=== PATIENT | female | born 1970 | race Caucasian/White ===

== ENCOUNTER 2018-03-28 09:07 | Day surgery (SDC) | payer BC ==
[2018-03-28] MEDS ORDERED: cefOXitin 2 GM VIAL ONE (10:52)
[2018-03-28] MEDS ORDERED: Sodium Chloride 0.9% 100 ML ONE (11:02)
[2018-03-28] MEDS ORDERED: Bupivacaine/Epinephrine 0.25% 30 ML VIAL ONE (13:21)
[2018-03-28] MEDS ORDERED: Fentanyl 100 MCG/2 ML VIAL ONE ×2 (13:29→15:00)
[2018-03-28] MEDS ORDERED: Famotidine/PF 20 mg/2ml Vial ONE (13:29)
[2018-03-28] MEDS ORDERED: Lidocaine 1% PF 5 ML VIAL ONE (14:56)
[2018-03-28] MEDS ORDERED: Glycopyrrolate 0.2 MG/ML 5 ML SYRINGE ONE (14:56)
[2018-03-28] MEDS ORDERED: Ketorolac Tromethamine 30 MG/ML VIAL ONE (14:56)
[2018-03-28] MEDS ORDERED: PROPOFOL 200 MG/20 ML VIAL ONE (14:56)
[2018-03-28] MEDS ORDERED: Dexamethasone 20 MG/5 ML VIAL ONE (14:56)
[2018-03-28] MEDS ORDERED: Ondansetron HCl/PF 4 MG/2 ML Vial ONE (14:56)
[2018-03-28] MEDS ORDERED: Ondansetron HCl/PF 4 MG/2 ML Vial IVP PRN (15:20)
[2018-03-28] MEDS ORDERED: Non-Formulary Medication 1 EACH PO PRN (15:20)
[2018-03-28] MEDS ORDERED: Promethazine HCl 25 MG/ML VIAL IM/IV PRN (15:20)
[2018-03-28] MEDS ORDERED: HYDROcodone/Acetaminophen 5/325 mg Tablet ONE (16:40)
--- NOTE | 2018-03-29 01:13 | OP ---
DATE OF PROCEDURE: 03/28/2018 PREOPERATIVE DIAGNOSIS: Acute cholecystitis. POSTOPERATIVE DIAGNOSIS: Acute cholecystitis. PROCEDURE: Laparoscopic cholecystectomy. SURGEON: Vinayak Jiang M.D. ANESTHESIA: General. ESTIMATED BLOOD LOSS: None. COMPLICATIONS: None. SPECIMEN: Gallbladder. FINDINGS: Cholecystitis. PROCEDURE IN DETAIL: The patient was taken to the Operating Room and laid supine on the Operating Ro om table. After general anesthetic was obtained, the abdomen was prepped and draped in a sterile fas hion. A curved incision was made below the umbilicus. Cautery was used to dissect down to the umbili alex fascia. Umbilical fascia was incised and held up using a Ojhn. The abdominal cavity was enter ed using a Swati clamp. Holding stitch of Vicryl was placed on each side of the fascia. Olivera troc ar was placed. High-flow pneumoperitoneum was obtained. An upper midline 5-mm port and two right up per quadrant 5-mm ports were placed under direct camera visualization. The gallbladder was retracted from the gallbladder fossa. The peritoneum of the gallbladder was opened anteriorly and posteriorly . The critical view triangle was seen showing only the cystic duct and cystic artery branching from medial to lateral. There were no other branching structures. Two clips were placed proximally on th e cystic duct and one laterally. It was cut using laparoscopic scissors. The cystic artery was take n in the same way. Electrocautery was then used to dissect the gallbladder out of the gallbladder fo ssa. The gallbladder was placed in an Endo catch bag and brought out through the Olivera. There was no bleeding or bile in the liver bed. The cystic duct stump and cystic artery stump were intact with out evidence of extravasation or bleeding. All port sites were infiltrated using local anesthesia. All ports were removed under camera visualization. Pneumoperitoneum was let down. The Vicryl was use d to close the fascial defect below the umbilicus. All incisions were irrigated and closed using 4-0 Monocryl and DermaBond. The patient was enroute to Recovery in stable condition. All instrument co unts, needle counts and lap counts were correct.
== END 2018-03-28 17:27 | disposition home or self-care (01) ==
LOC: SDC 09:07
PROVIDERS: ATTEND Surgery
PROC: 0FT44ZZ Resection of Gallbladder, Percutaneous Endoscopic Approach (ICD-10-PCS; principal; 2018-03-28)
DX: K80.00 Calculus of gallbladder with acute cholecystitis without obstruction (principal); F90.9 Attention-deficit hyperactivity disorder, unspecified type; Z88.2 Allergy status to sulfonamides; Z79.899 Other long term (current) drug therapy
CPT/HCPCS: 88304; 96374; J0694; J1100; J1885; J2001; J2405; J2704; J3010; J7050; S0028